=== PATIENT | male | born 1965 | race Caucasian/White ===

== ENCOUNTER 2016-05-07 05:04 | Emergency (ER) | payer BC ==
[~2016-05-07] VITALS: Ht 170.2 cm; Wt 97.7 kg
[~2016-05-07 05:04] MED LIST: NORCO 325 MG-51 TAB PO
[2016-05-07 05:08] VITALS: BP 123/77; TEMP 97.8
[2016-05-07 05:43] LABS: HEMATOCRIT 46.9 % (42.0-52.0); HEMOGLOBIN 16.1 g/dl (13.5-18.0); MEAN CELL VOLUME 91 fl (80.0-100.0); MEAN CORPUSCULAR HEMOGLOBIN 31 pg (27.0-31.0); MEAN CORPUSCULAR HGB CONC 34 g/dl (33.0-37.0); PLATELET COUNT 321 K/mm3 (130-400); RED BLOOD COUNT 5.15 M/mm3 (4.20-5.60); REDCELL DISTRIBUTION WIDTH-CV 13.2 % (11.5-14.5); WHITE BLOOD COUNT 19.6 K/mm3 (4.8-10.8)
[2016-05-07 05:46] LABS: ADD PATHOLOGY DIFF REVIEW NO
[2016-05-07 05:57] LABS: ADJUSTED CALCIUM 9.5 mg/dL (8.4-10.2); ALBUMIN 4.2 gm/dL (3.5-5.0); BILIRUBIN,TOTAL 1.1 mg/dL (0.0-1.0); CALCIUM 9.7 mg/dL (8.4-10.2); CREATININE, serum 1.31 mg/dL (0.66-1.25); POTASSIUM 4.4 mmol/L (3.4-5.0); TOTAL PROTEIN 8.3 gm/dL (6.4-8.2)
[2016-05-07 06:39] LABS: PH 5 (5-8); SQUAMOUS EPITHELIAL 0-2 /hpf; URINE APPEARANCE Clear; URINE BACTERIA None Seen /hpf; URINE BILIRUBIN Negative (NEGATIVE); URINE BLOOD 2+ (NEGATIVE); URINE COLOR Yellow; URINE GLUCOSE Negative (NEGATIVE); URINE KETONE Trace (NEGATIVE); URINE RBC 20-50 /hpf; URINE UROBILINOGEN Negative (NEGATIVE)
[2016-05-07 08:47] VITALS: PULSE 84
[2016-05-07 09:49] LABS: BAND 5 % (0-10); BASOPHIL 1 % (0-2); EOSINOPHIL 1 % (0-4); NEUTROPHILS 64 % (42.0-75.2); PLATELET ESTIMATE NORMAL (NORMAL); TOTAL CELLS COUNTED 100
== END 2016-05-07 08:47 | disposition home or self-care (01) ==
LOC: COL.ER 05:04
PROVIDERS: Emergency Medicine
DX: N13.2 Hydronephrosis with renal and ureteral calculous obstruction (principal)
CPT/HCPCS: J1170; J1885; J2405; J7030; Q9967

== ENCOUNTER → 2017-06-15 | Outpatient (CLI) | payer BC | LOC: COL.RAD 11:34 | DX: R06.09 Other forms of dyspnea (principal) ==

== ENCOUNTER → 2017-06-15 | Outpatient (CLI) | payer BC ==
[2017-06-15 15:55] LABS: BASO # 0.1 (0.0-0.2); BASO % 0.8 % (0.0-2.0); EOS # 0.3 (0.0-0.7); EOS % 2.2 % (0-4.0); GRAN # 6.2 (1.4-6.5); GRAN % 54.8 % (42.2-75.2); HEMATOCRIT 51.8 % (42.0-52.0); HEMOGLOBIN 16.7 g/dl (13.5-18.0); LYMPH % 35.6 % (20.0-51.0); MEAN CELL VOLUME 97 fl (80.0-100.0); MEAN CORPUSCULAR HEMOGLOBIN 31 pg (27.0-31.0); MEAN CORPUSCULAR HGB CONC 32 g/dl (33.0-37.0); MEAN PLATELET VOLUME 9.4 fl (7.4-10.4); MONO # 0.7 (0.1-0.6); MONO % 6.2 % (1.7-9.3); PLATELET COUNT 353 K/mm3 (130-400); RED BLOOD COUNT 5.34 M/mm3 (4.20-5.60); REDCELL DISTRIBUTION WIDTH-CV 13.8 % (11.5-14.5)
[2017-06-15 16:02] LABS: BILIRUBIN,TOTAL 0.4 mg/dL (0.0-1.0); CALCIUM 10.1 mg/dL (8.4-10.2); CHOLESTEROL RISK RATIO 4.5; CREATININE, serum 0.98 mg/dL (0.66-1.25); POTASSIUM 5.4 mmol/L (3.4-5.0); TOTAL PROTEIN 8.4 gm/dL (6.4-8.2)
[2017-06-15 16:33] LABS: PSA-TOTAL 5.72 ng/mL (0-4)
== END ==
LOC: COL.LAB 11:14
PROVIDERS: Family Medicine
DX: Z12.5 Encounter for screening for malignant neoplasm of prostate (principal); R82.90 Unspecified abnormal findings in urine; E78.00 Pure hypercholesterolemia, unspecified
CPT/HCPCS: G0103

== ENCOUNTER → 2017-11-11 | Outpatient (CLI) | payer BC ==
[2017-11-11 18:47] LABS: BASO # 0.1 (0.0-0.2); BASO % 0.8 % (0.0-2.0); EOS # 0.4 (0.0-0.7); EOS % 3.4 % (0-4.0); GRAN # 5.2 (1.4-6.5); GRAN % 48.3 % (42.2-75.2); HEMOGLOBIN 16.9 g/dl (13.5-18.0); LYMPH # 4.4 (1.2-3.4); LYMPH % 40.3 % (20.0-51.0); MEAN CELL VOLUME 93 fl (80.0-100.0); MEAN CORPUSCULAR HEMOGLOBIN 31 pg (27.0-31.0); MEAN CORPUSCULAR HGB CONC 33 g/dl (33.0-37.0); MEAN PLATELET VOLUME 9.5 fl (7.4-10.4); MONO # 0.7 (0.1-0.6); MONO % 6.8 % (1.7-9.3); PLATELET COUNT 369 K/mm3 (130-400); RED BLOOD COUNT 5.51 M/mm3 (4.20-5.60)
== END ==
LOC: COL.LAB 17:46
PROVIDERS: Family Medicine
DX: R59.1 Generalized enlarged lymph nodes (principal); R82.99 Other abnormal findings in urine; M54.9 Dorsalgia, unspecified

== ENCOUNTER → 2017-11-30 | Outpatient (CLI) | payer BC | LOC: COL.RAD 08:04 | DX: M54.9 Dorsalgia, unspecified (principal) ==

== ENCOUNTER 2018-02-27 23:19 | Inpatient (IN) | payer BC ==
[~2018-02-27] VITALS: Ht 167.6 cm; Wt 107.9 kg
[2018-02-28 00:01] LABS: BASO # 0.1 (0.0-0.2); BASO % 0.8 % (0.0-2.0); EOS # 0.4 (0.0-0.7); EOS % 3.2 % (0-4.0); GRAN % 67.2 % (42.2-75.2); HEMATOCRIT 45.9 % (42.0-52.0); HEMOGLOBIN 15.5 g/dl (13.5-18.0); LYMPH # 2.4 (1.2-3.4); LYMPH % 20.1 % (20.0-51.0); MEAN CELL VOLUME 91 fl (80.0-100.0); MEAN CORPUSCULAR HEMOGLOBIN 31 pg (27.0-31.0); MEAN CORPUSCULAR HGB CONC 34 g/dl (33.0-37.0); MONO % 8.4 % (1.7-9.3); PLATELET COUNT 274 K/mm3 (130-400); RED BLOOD COUNT 5.03 M/mm3 (4.20-5.60); REDCELL DISTRIBUTION WIDTH-CV 13.4 % (11.5-14.5)
[2018-02-28 00:27] LABS: ALANINE AMINOTRANSFERASE 26 U/L (21-72); ALBUMIN 3.9 gm/dL (3.5-5.0); ALKALINE PHOSPHATASE 79 U/L (50-136); AST,SGOT 21 U/L (15-37); BLOOD UREA NITROGEN 13 mg/dL (9-20); CALCIUM 9.1 mg/dL (8.4-10.2); CREATININE, serum 0.98 mg/dL (0.66-1.25); TROPONIN-I < 0.012 ng/mL (0.000-0.034)
[2018-02-28 00:29] LABS: BILIRUBIN,TOTAL 0.5 mg/dL (0.0-1.0); CHLORIDE 106 mmol/L (98-107); GLUCOSE 111 mg/dL (74-106); POTASSIUM 4.4 mmol/L (3.4-5.0); SODIUM 137 mmol/L (137-145)
[2018-02-28 00:30] LABS: ANION GAP 8 mmol/L (7-16); CARBON DIOXIDE 23 mmol/L (22-30)
[2018-02-28] MEDS ORDERED: PREDNISONE20 MG PO ×2 (02:40)
[2018-02-28 03:49] VITALS: BP 107/70; PULSE 100; TEMP 98
[2018-02-28 07:41] VITALS: BP 117/66; PULSE 95; TEMP 97.8
[2018-02-28 11:49] VITALS: BP 140/76; PULSE 96; TEMP 98.1
[2018-02-28 16:38] VITALS: BP 111/60; PULSE 116; TEMP 98.4
[2018-02-28 19:56] VITALS: BP 117/59; PULSE 129; TEMP 98.3
[2018-02-28 23:35] VITALS: BP 110/64; BP 133/62; PULSE 109; PULSE 84; TEMP 97.2; TEMP 97.7
[2018-03-01 03:38] VITALS: BP 105/67; PULSE 105; TEMP 97.5
[2018-03-01 06:07] LABS: HEMATOCRIT 44.5 % (42.0-52.0); HEMOGLOBIN 14.7 g/dl (13.5-18.0); MEAN CELL VOLUME 94 fl (80.0-100.0); MEAN CORPUSCULAR HEMOGLOBIN 31 pg (27.0-31.0); MEAN CORPUSCULAR HGB CONC 33 g/dl (33.0-37.0); MEAN PLATELET VOLUME 9.7 fl (7.4-10.4); PLATELET COUNT 295 K/mm3 (130-400); RED BLOOD COUNT 4.75 M/mm3 (4.20-5.60); REDCELL DISTRIBUTION WIDTH-CV 13.8 % (11.5-14.5)
[2018-03-01 06:15] LABS: CALCIUM 9.1 mg/dL (8.4-10.2); CREATININE, serum 0.78 mg/dL (0.66-1.25)
[2018-03-01 07:01] LABS: BAND 18 % (0-10); LYMPHOCYTE 11 % (20.0-51.0); NEUTROPHILS 70 % (42.0-75.2)
[2018-03-01 07:02] LABS: PLATELET ESTIMATE NORMAL (NORMAL)
[2018-03-01 07:03] VITALS: BP 116/68; PULSE 92; TEMP 98.3
[2018-03-01 11:03] VITALS: BP 107/64; PULSE 97; TEMP 98
[2018-03-01 16:07] VITALS: BP 130/65; PULSE 110; TEMP 98.3
[2018-03-01 21:24] VITALS: BP 126/80; PULSE 95; TEMP 97.9
[2018-03-02] VITALS (7 sets, daily range): BP systolic 111–123; BP diastolic 60–76; PULSE 86–99; TEMP 97.2–98.3
[2018-03-02 06:18] LABS: HEMATOCRIT 44.1 % (42.0-52.0); HEMOGLOBIN 14.3 g/dl (13.5-18.0); MEAN CELL VOLUME 95 fl (80.0-100.0); MEAN CORPUSCULAR HEMOGLOBIN 31 pg (27.0-31.0); MEAN CORPUSCULAR HGB CONC 32 g/dl (33.0-37.0); MEAN PLATELET VOLUME 9.5 fl (7.4-10.4); PLATELET COUNT 287 K/mm3 (130-400); RED BLOOD COUNT 4.66 M/mm3 (4.20-5.60)
[2018-03-02 06:28] LABS: CALCIUM 8.7 mg/dL (8.4-10.2); CREATININE, serum 0.85 mg/dL (0.66-1.25); POTASSIUM 4.1 mmol/L (3.4-5.0)
[2018-03-02 06:45] LABS: BAND 6 % (0-10); LYMPHOCYTE 26 % (20.0-51.0); NEUTROPHILS 60 % (42.0-75.2); PLATELET ESTIMATE NORMAL (NORMAL)
[2018-03-03 03:32] VITALS: BP 113/74; PULSE 75; TEMP 97.7
[2018-03-03 03:36] VITALS: BP 118/72; PULSE 73
[2018-03-03 05:27] VITALS: BP 116/70; PULSE 75
[2018-03-03 06:10] LABS: BASO % 0.1 % (0.0-2.0); GRAN # 12.8 (1.4-6.5); HEMATOCRIT 44.7 % (42.0-52.0); HEMOGLOBIN 14.9 g/dl (13.5-18.0); LYMPH # 2.3 (1.2-3.4); LYMPH % 14.8 % (20.0-51.0); MEAN CELL VOLUME 93 fl (80.0-100.0); MEAN CORPUSCULAR HEMOGLOBIN 31 pg (27.0-31.0); MEAN CORPUSCULAR HGB CONC 33 g/dl (33.0-37.0); MEAN PLATELET VOLUME 9.6 fl (7.4-10.4); MONO # 0.4 (0.1-0.6); MONO % 2.6 % (1.7-9.3); PLATELET COUNT 290 K/mm3 (130-400); RED BLOOD COUNT 4.83 M/mm3 (4.20-5.60); REDCELL DISTRIBUTION WIDTH-CV 13.2 % (11.5-14.5)
[2018-03-03 06:24] LABS: CALCIUM 8.5 mg/dL (8.4-10.2); CREATININE, serum 0.76 mg/dL (0.66-1.25); POTASSIUM 4.6 mmol/L (3.4-5.0)
[2018-03-03] MEDS ORDERED: DOXYCYCLINE 10100 MG PO (09:30)
[2018-03-03] MEDS ORDERED: COMBIRESP IH (09:31)
[2018-03-03] MEDS ORDERED: PREDNISONE10 MG PO (09:32)
[2018-03-03 10:34] VITALS: BP 134/70; PULSE 100; TEMP 97
== END 2018-03-03 10:58 | disposition home or self-care (01) | DRG 202 ==
LOC: COL.ER 23:19 → MEDICAL 02-28 02:59
PROVIDERS: Emergency Medicine; Family Medicine; Internal Medicine; Nurse Practitioner Family
DX: J20.5 Acute bronchitis due to respiratory syncytial virus (principal); J44.0 Chronic obstructive pulmonary disease with (acute) lower respiratory infection; J44.1 Chronic obstructive pulmonary disease with (acute) exacerbation; Z23 Encounter for immunization; F17.210 Nicotine dependence, cigarettes, uncomplicated
CPT/HCPCS: 99232-AI; 99239; A4614; G0378; J2930; J7030; J7050

== ENCOUNTER → 2018-12-20 | Outpatient (CLI) | payer BC ==
[~2018-12-20] MED LIST changes: +COMBIRESP IH; +DOXYCYCLINE 10100 MG PO; +PREDNISONE10 MG PO; +PREDNISONE20 MG PO
== END ==
LOC: COL.RAD 17:24
DX: R07.81 Pleurodynia (principal)

== ENCOUNTER 2020-09-04 10:07 | Emergency (ER) | payer OTHER ==
[~2020-09-04] VITALS: Ht 167.6 cm; Wt 104.5 kg
[~2020-09-04 10:07] MED LIST changes: +ZOFRAN ODT4 MG PO
[2020-09-04 10:27] VITALS: TEMP 98.9
[2020-09-04 11:03] LABS: BASO % 0.5 % (0.0-2.0); EOS # 0.1 (0.0-0.7); EOS % 0.9 % (0-4.0); GRAN # 4.5 (1.4-6.5); GRAN % 56.9 % (42.2-75.2); HEMATOCRIT 46.6 % (42.0-52.0); HEMOGLOBIN 15.4 g/dl (13.5-18.0); LYMPH # 2.1 (1.2-3.4); LYMPH % 26.6 % (20.0-51.0); MEAN CELL VOLUME 93 fl (80.0-100.0); MEAN CORPUSCULAR HEMOGLOBIN 31 pg (27.0-31.0); MEAN CORPUSCULAR HGB CONC 33 g/dl (33.0-37.0); MEAN PLATELET VOLUME 9.7 fl (7.4-10.4); MONO # 1.2 (0.1-0.6); MONO % 14.6 % (1.7-9.3); PLATELET COUNT 260 K/mm3 (130-400); RED BLOOD COUNT 5.04 M/mm3 (4.20-5.60); REDCELL DISTRIBUTION WIDTH-CV 14.1 % (11.5-14.5)
[2020-09-04 11:06] LABS: ALANINE AMINOTRANSFERASE 26 U/L (4-49); ALBUMIN 3.9 gm/dL (3.5-5.0); ALKALINE PHOSPHATASE 88 U/L (50-136); ANION GAP 8 mmol/L (7-16); AST,SGOT 29 U/L (15-37); BILIRUBIN,TOTAL 0.4 mg/dL (0.0-1.0); BLOOD UREA NITROGEN 12 mg/dL (9-20); CALCIUM 8.6 mg/dL (8.4-10.2); CARBON DIOXIDE 23 mmol/L (22-30); CHLORIDE 102 mmol/L (98-107); CREATININE, serum 0.96 (0.66-1.25); GLUCOSE 109 mg/dL (74-106); POTASSIUM 4.3 mmol/L (3.4-5.0); SODIUM 133 mmol/L (137-145); TOTAL PROTEIN 7.8 gm/dL (6.4-8.2)
[2020-09-04 11:18] LABS: TROPONIN-I < 0.012 ng/mL (0.000-0.035)
[2020-09-04] MEDS ORDERED: NEB MC (12:16)
[2020-09-04] MEDS ORDERED: ALBUTEROL1.25 MG/3 IH (12:16)
[2020-09-04] MEDS ORDERED: DOXYCYCLINE 10100 MG PO (12:16)
[2020-09-04] MEDS ORDERED: PROAIR HFA0.09 MG/AC IH (12:16)
[2020-09-04] MEDS ORDERED: PREDNISONE20 MG PO (12:16)
[2020-09-04 13:03] VITALS: BP 117/78; PULSE 83
== END 2020-09-04 13:03 | disposition home or self-care (01) ==
LOC: COL.ER 10:07
PROVIDERS: Nurse Practitioner
DX: J44.1 Chronic obstructive pulmonary disease with (acute) exacerbation (principal); F17.210 Nicotine dependence, cigarettes, uncomplicated; Z20.822 Contact with and (suspected) exposure to COVID-19
CPT/HCPCS: J2930

== ENCOUNTER 2021-03-04 12:21 | Day surgery (SDC) | payer OTHER ==
[~2021-03-04] VITALS: Ht 167.6 cm; Wt 124.3 kg
[2021-03-04] VITALS (8 sets, daily range): BP systolic 106–142; BP diastolic 63–85; PULSE 80–92; TEMP 97.5–97.9
[~2021-03-04 12:21] MED LIST changes: +ALBUTEROL1.25 MG/3 IH; +NEB MC; +PROAIR HFA0.09 MG/AC IH
--- NOTE | 2021-03-04 12:35 | NUR ---
56 year old patient admitted to [facility] bay #8 via ambulation, no use of assistive devices. Procedure verified and consent signed. Medications and HX reviewed. First and last name + verified with the patient. Vitals obtained. Physical assessment completed, see physical assessment. Patient changed into a clean gown and voided prior. Warm blanket provided. Non-slip socks are on. IV started in in R wrist on first attempt with 20G. IVF are infusing without difficulty. PO medication administered. Patient denied having any further quesitons or concerns. Side rails x2. Lights dimmed to provide comfort, per patient request.
[2021-03-04] MEDS ORDERED: SPIRIVA RE2.5 MCG/Ac IH (12:43)
[2021-03-04] MEDS ORDERED: 00186-0370-20 IH (12:43)
--- NOTE | 2021-03-04 14:30 | NUR ---
RT arrived to administer a breathing treatment prior to surgery.
[2021-03-04] MEDS ORDERED: NORCO 325 MG-51 TAB PO (15:38)
--- NOTE | 2021-03-04 16:10 | NUR ---
Patient arrived from PACU escorted by ELSA Mckeon. Patient is alert and oriented. Vitals obtained. Patient requested a muffin and a Pepsi to drink. Patient called his sister to let her know he is out of surgery. Patient denies pain. Will continue to monitor per intervals. Call curry is at bedside, side rails x2.
--- NOTE | 2021-03-04 16:25 | NUR ---
Patient is tolerating his Pepsi and muffin well. Vitals obtained. Will continue to monitor per protocol. Call curry at bedside.
--- NOTE | 2021-03-04 16:40 | NUR ---
Patient was assisted to the bathroom by ELSA Mendoza and ELSA Mckeon. Patient voided successfully then sat at bedside. IV was discontinued at this time. Catheter tip intact. Pressure dressing applied. No redness or swelling noted. Discharge instructions and educational material was also reviewed at this time. Patient verbalized understanding and denied having any questions or concerns. Patient signed the related paperwork. He denied needing any assistance changing into his personal clothes. Call curry is within reach.
--- NOTE | 2021-03-04 17:01 | NUR ---
Patient was escorted out to the ED entrence by ELSA Mendoza. Patient has his discharge packet and personal belongings in the white patient belongings bag. Patient denied having any further questions or concerns. Patient was transferred into the care of his sister, who is present to drive. Patient is in the front passanger seat with his seat belt on.
== END 2021-03-04 17:00 | disposition home or self-care (01) ==
LOC: SDCO 12:21
DX: K42.0 Umbilical hernia with obstruction, without gangrene (principal); F17.210 Nicotine dependence, cigarettes, uncomplicated; J44.9 Chronic obstructive pulmonary disease, unspecified; E66.9 Obesity, unspecified; Z99.81 Dependence on supplemental oxygen
CPT/HCPCS: C1781; J0690; J1100; J1885; J2250; J2405; J2704; J3010; J7120